=== PATIENT | male | born 1970 | race Caucasian/White ===

== ENCOUNTER 2020-10-24 03:28 | Inpatient (IN) ==
[2020-10-24] MEDS ORDERED: SODIUM CHLORIDE 0.9% 1,000 ML IV STA (04:07)
[2020-10-24] MEDS ORDERED: ONDANSETRON ODT 4 MG TABLET PO STA (04:07)
[2020-10-24 04:19] LABS: Basophils # 0.1 10*3/uL (0.0-0.2); Basophils % 0.9 % (0.0-0.8); Eosinophils # 0.2 10*3/uL (0.0-0.87); Eosinophils % 1.3 % (0.00-10.9); Hematocrit 42.2 VOL% (42.0-52.0); Hemoglobin 13.1 GM/DL (14.0-18.0); Immature Granulocytes % 23.1 %; Lymphocytes # 2.7 10*3/uL (1.4-4.0); Lymphocytes % 22.4 % (21.2-54.2); Mean Corpuscular Volume 115.3 FL (87-102); Mean Platelet Volume 11.8 FL (9.6-12.0); NRBC # 0.03 10*3/uL; Neutrophils % 46.3 % (38.7-73.9); Platelet Count 315 T/CUMM (130-400); Red Blood Count 3.66 MC/CUMM (3.8-5.5); Red Cell Distribution Width 14.6 % (9.3-17.3); White Blood Count 12.1 T/CUMM (4-12)
[2020-10-24 04:33] LABS: Albumin 3.5 G/DL (3.4-5.0); Bilirubin,Total 1.9 MG/DL (0.20-1.00); Calcium 9.1 MG/DL (8.5-10.1); Osmolality,Calculated 292.5 MOS/KG (273-304); Potassium 4.6 MMOL/L (3.5-5.1); Total Protein 6.8 G/DL (6.4-8.2)
[2020-10-24 04:38] LABS: Band Neutrophils 6 % (0-10); Eosinophils 1 % (0-10); Hypochromasia Slight; Lymphocytes 36 % (20-55); Microcytosis Slight; Platelet Estimate Adequate; Segmented Neutrophils 53 % (50-85); Total Cells Counted 100
[2020-10-24] MEDS ORDERED: ONDANSETRON 4 MG/2 ML VIAL ONE (04:38)
[2020-10-24] MEDS ORDERED: IBUPROFEN 600 MG TABLET ONE (04:38)
[2020-10-24] MEDS ORDERED: ONDANSETRON 4 MG/2 ML VIAL IV STA (04:44)
[2020-10-24] MEDS ORDERED: LEVOFLOXACIN INJ 750 MG/150 ML PREMIX IV STA (04:59)
[2020-10-24] MEDS ORDERED: methylPREDNISolone SOD SUC 125 MG/2 ML VIAL IV STA (05:02)
[2020-10-24] MEDS ORDERED: ALBUTEROL/IPRATROPIUM 3 ML NEB RESP TX STA (05:02)
[2020-10-24] MEDS ORDERED: KETOROLAC 30 MG/1 ML VIAL IV STA (05:03)
[2020-10-24] MEDS ORDERED: GLUCAGON 1 MG VIAL IM PRN (05:46)
[2020-10-24] MEDS ORDERED: DEXTROSE 50% 25 GM/50 ML VIAL IV PRN (05:46)
[2020-10-24] MEDS ORDERED: ALBUTEROL/IPRATROPIUM 3 ML NEB RESP TX PRN (05:48)
[2020-10-24] MEDS ORDERED: SODIUM CHLORIDE 0.65% NASAL SPRAY 45 ML BOTTLE BOTH NARES PRN (05:51)
[2020-10-24] MEDS ORDERED: [UNRECOGNIZED DRUG - OTHER] TOP PRN (05:51)
[2020-10-24] MEDS ORDERED: LIDOCAINE 4% TOP PRN (05:51)
[2020-10-24] MEDS ORDERED: CALCIUM CARBONATE CHEW 500 MG TABLET PO PRN (06:16)
[2020-10-24 07:06] LABS: Bacteria,Urine Many /HPF (Few); Bilirubin,Urine Negative (Negative); Blood, Urine Negative (Negative); Glucose,Urine (UA) >=500 mg/dL (Negative); Ketones,Urine 5 mg/dL (Negative); Mucus,Urine Occasional /LPF (Occasional); Nitrite,Urine Negative (Negative); Protein,Urine Negative; Urine Appearance CLEAR (Clear); Urine Color Yellow (Yellow); Urine Specific Gravity 1.016 (1.001-1.035); Urine Urobilinogen < 2.0 EU/DL (0.2-1.0)
[2020-10-24] MEDS: SODIUM CHLORIDE 0.9% 1,000 ML IV SCH ×3 (08:19→22:50)
[2020-10-24] MEDS ORDERED: DOXYCYCLINE HYCLATE INJ 100 MG in SODIUM CHLORIDE 0.9% 100 ML IV SCH (09:00)
[2020-10-24] MEDS: ONDANSETRON 4 MG/2 ML VIAL IV PRN (10:37)
[2020-10-24] MEDS: INSULIN ASPART PROTAMINE/ASPART 70/30 100 UNIT/ML SUBCUT SCH ×2 (10:39→17:35)
[2020-10-24] MEDS: BUDESONIDE/FORMOTEROL 160-4.5 INHALER 6 GM INH SCH ×2 (10:40→21:51)
[2020-10-24] MEDS: INSULIN LISPRO 100 UNIT/ML SUBCUT SCH ×5 (10:40→21:50)
[2020-10-24] MEDS: carvediloL 12.5 MG TABLET PO SCH ×2 (10:40→21:49)
[2020-10-24] MEDS: levETIRAcetam 500 MG TABLET PO SCH ×2 (10:40→21:50)
[2020-10-24] MEDS: DAPSONE 100 MG TABLET PO SCH (10:40)
[2020-10-24] MEDS: MAGNESIUM OXIDE 400 MG TABLET PO SCH ×2 (10:41→21:51)
[2020-10-24] MEDS: POTASSIUM CHLORIDE 10 MEQ TABLET PO SCH (10:41)
[2020-10-24] MEDS: ESCITALOPRAM 10 MG TABLET PO SCH (10:41)
[2020-10-24] MEDS: ALPRAZolam 0.25 MG TABLET PO SCH ×3 (10:41→21:51)
[2020-10-24] MEDS: MULTIVITAMIN (CENTRUM) TABLET PO SCH (10:41)
[2020-10-24] MEDS: ASPIRIN EC 81 MG TABLET PO SCH (10:41)
[2020-10-24] MEDS: THIAMINE 100 MG TABLET PO SCH (10:42)
[2020-10-24] MEDS: busPIRone 10 MG TABLET PO SCH ×3 (10:42→21:47)
[2020-10-24] MEDS: ASCORBIC ACID 500 MG TABLET PO SCH (10:42)
[2020-10-24] MEDS: FERROUS SULFATE 325 MG TABLET PO SCH ×2 (10:42→21:50)
[2020-10-24] MEDS: predniSONE 5 MG TABLET PO SCH (10:42)
[2020-10-24] MEDS: amLODIPine 5 MG TABLET PO SCH (10:42)
[2020-10-24] MEDS: PANTOPRAZOLE 40 MG TABLET PO SCH (10:42)
[2020-10-24] MEDS: APIXABAN 5 MG TABLET PO SCH ×2 (10:42→21:49)
[2020-10-24] MEDS: FOLIC ACID 1 MG TABLET PO SCH (10:42)
[2020-10-24] MEDS: LOSARTAN 25 MG TABLET PO SCH (10:42)
[2020-10-24] MEDS: DOCUSATE SODIUM 100 MG CAPSULE PO SCH ×2 (10:47→21:47)
[2020-10-24] MEDS: MYCOPHENOLATE MOFETIL 250 MG CAPSULE PO SCH ×2 (10:47→21:47)
[2020-10-24] MEDS: TACROLIMUS 0.5 MG CAPSULE PO SCH ×2 (10:47→21:51)
[2020-10-24] MEDS: DEXTROMETHORPHAN QUINIDINE PO SCH ×2 (11:01→17:35)
[2020-10-24] MEDS: ALBUTEROL/IPRATROPIUM 3 ML NEB RESP TX SCH ×2 (13:00→23:09)
[2020-10-24] MEDS: oxyCODONE IR 5 MG TABLET PO PRN (14:40)
[2020-10-24] MEDS: LIDOCAINE 5% PATCH TRANSDERM PRN (18:21)
[2020-10-24] MEDS: TAMSULOSIN 0.4 MG CAPSULE PO SCH (21:50)
[2020-10-24] MEDS: ATORVASTATIN 10 MG TABLET PO SCH (21:50)
[2020-10-24] MEDS: QUEtiapine 25 MG TABLET PO SCH (21:51)
[2020-10-25] MEDS: ALBUTEROL/IPRATROPIUM 3 ML NEB RESP TX SCH ×4 (01:00→19:17)
[2020-10-25 05:48] LABS: Basophils # 0.1 10*3/uL (0.0-0.2); Basophils % 0.4 % (0.0-0.8); Hematocrit 38.9 VOL% (42.0-52.0); Hemoglobin 11.7 GM/DL (14.0-18.0); Immature Granulocytes % 18.6 %; Immature Granulocytes Absolute 3.13 #; Lymphocytes % 17.6 % (21.2-54.2); Mean Corpuscular HGB Conc 30.1 GM/DL (32-36); Mean Corpuscular Volume 115.8 FL (87-102); Monocytes % 6.3 % (1.7-12.7); NRBC # 0.02 10*3/uL; Neutrophils % 57.1 % (38.7-73.9); Red Blood Count 3.36 MC/CUMM (3.8-5.5); Red Cell Distribution Width 14.8 % (9.3-17.3)
[2020-10-25 05:53] LABS: Platelet Count 233 T/CUMM (130-400); White Blood Count 16.8 T/CUMM (4-12)
[2020-10-25 06:08] LABS: Albumin 2.5 G/DL (3.4-5.0); Bilirubin,Total 0.5 MG/DL (0.20-1.00); Calcium 8.5 MG/DL (8.5-10.1); Osmolality,Calculated 296.5 MOS/KG (273-304); Potassium 5.2 MMOL/L (3.5-5.1); Total Protein 5.6 G/DL (6.4-8.2)
[2020-10-25] MEDS: DEXTROMETHORPHAN QUINIDINE PO SCH ×2 (06:14→17:48)
[2020-10-25] MEDS: LEVOTHYROXINE 100 MCG TABLET PO SCH (06:15)
[2020-10-25 06:42] LABS: Band Neutrophils 7 % (0-10); Eosinophils 1 % (0-10); Lymphocytes 19 % (20-55); Metamyelocytes 2 %; Myelocytes 2 %; Platelet Estimate Normal; Segmented Neutrophils 59 % (50-85)
[2020-10-25 06:43] LABS: Macrocytosis 1+; Total Cells Counted 100
[2020-10-25] MEDS: SODIUM CHLORIDE 0.9% 1,000 ML IV SCH ×3 (06:59→22:53)
[2020-10-25] MEDS: DOCUSATE SODIUM 100 MG CAPSULE PO SCH ×2 (09:43→21:20)
[2020-10-25] MEDS: MAGNESIUM OXIDE 400 MG TABLET PO SCH ×2 (09:44→21:16)
[2020-10-25] MEDS: ALPRAZolam 0.25 MG TABLET PO SCH ×3 (09:44→21:18)
[2020-10-25] MEDS: FERROUS SULFATE 325 MG TABLET PO SCH ×2 (09:44→21:18)
[2020-10-25] MEDS: TACROLIMUS 0.5 MG CAPSULE PO SCH ×2 (09:44→21:17)
[2020-10-25] MEDS: DAPSONE 100 MG TABLET PO SCH (09:44)
[2020-10-25] MEDS: ESCITALOPRAM 10 MG TABLET PO SCH (09:45)
[2020-10-25] MEDS: ASPIRIN EC 81 MG TABLET PO SCH (09:45)
[2020-10-25] MEDS: MYCOPHENOLATE MOFETIL 250 MG CAPSULE PO SCH ×2 (09:45→21:16)
[2020-10-25] MEDS: busPIRone 10 MG TABLET PO SCH ×3 (09:45→21:17)
[2020-10-25] MEDS: THIAMINE 100 MG TABLET PO SCH (09:45)
[2020-10-25] MEDS: FOLIC ACID 1 MG TABLET PO SCH (09:45)
[2020-10-25] MEDS: MULTIVITAMIN (CENTRUM) TABLET PO SCH (09:45)
[2020-10-25] MEDS: ASCORBIC ACID 500 MG TABLET PO SCH (09:45)
[2020-10-25] MEDS: predniSONE 5 MG TABLET PO SCH (09:45)
[2020-10-25] MEDS: levETIRAcetam 500 MG TABLET PO SCH ×2 (09:45→21:20)
[2020-10-25] MEDS: APIXABAN 5 MG TABLET PO SCH ×2 (09:46→21:20)
[2020-10-25] MEDS: carvediloL 12.5 MG TABLET PO SCH ×2 (09:46→21:21)
[2020-10-25] MEDS: PANTOPRAZOLE 40 MG TABLET PO SCH (09:46)
[2020-10-25] MEDS: INSULIN LISPRO 100 UNIT/ML SUBCUT SCH ×4 (09:46→21:15)
[2020-10-25] MEDS: BUDESONIDE/FORMOTEROL 160-4.5 INHALER 6 GM INH SCH ×2 (09:47→21:22)
[2020-10-25] MEDS: INSULIN ASPART PROTAMINE/ASPART 70/30 100 UNIT/ML SUBCUT SCH ×2 (09:47→16:28)
[2020-10-25] MEDS: LOSARTAN 25 MG TABLET PO SCH (10:18)
[2020-10-25] MEDS: amLODIPine 5 MG TABLET PO SCH (10:18)
[2020-10-25] MEDS: POTASSIUM CHLORIDE 10 MEQ TABLET PO SCH (10:38)
[2020-10-25] MEDS: TAMSULOSIN 0.4 MG CAPSULE PO SCH (21:17)
[2020-10-25] MEDS: QUEtiapine 25 MG TABLET PO SCH (21:19)
[2020-10-25] MEDS: ATORVASTATIN 10 MG TABLET PO SCH (21:20)
[2020-10-26] MEDS: ALBUTEROL/IPRATROPIUM 3 ML NEB RESP TX SCH ×4 (00:06→19:12)
[2020-10-26] MEDS: oxyCODONE IR 5 MG TABLET PO PRN ×2 (02:47→23:31)
[2020-10-26 05:18] LABS: Basophils % 0.3 % (0.0-0.8); Eosinophils % 0.2 % (0.00-10.9); Hematocrit 35.8 VOL% (42.0-52.0); Hemoglobin 10.8 GM/DL (14.0-18.0); Immature Granulocytes % 13.3 %; Immature Granulocytes Absolute 2.03 #; Lymphocytes # 3.3 10*3/uL (1.4-4.0); Lymphocytes % 21.9 % (21.2-54.2); Mean Corpuscular HGB Conc 30.2 GM/DL (32-36); Mean Corpuscular Volume 115.1 FL (87-102); Mean Platelet Volume 12.1 FL (9.6-12.0); Monocytes % 4.3 % (1.7-12.7); NRBC # 0.08 10*3/uL; Platelet Count 278 T/CUMM (130-400); Red Blood Count 3.11 MC/CUMM (3.8-5.5); Red Cell Distribution Width 14.7 % (9.3-17.3); White Blood Count 15.2 T/CUMM (4-12)
[2020-10-26] MEDS: DEXTROMETHORPHAN QUINIDINE PO SCH ×2 (05:31→18:41)
[2020-10-26] MEDS: LEVOTHYROXINE 100 MCG TABLET PO SCH (05:32)
[2020-10-26 05:33] LABS: Calcium 8.7 MG/DL (8.5-10.1); Osmolality,Calculated 294.3 MOS/KG (273-304); Potassium 4.8 MMOL/L (3.5-5.1)
[2020-10-26 07:13] LABS: Anisocytosis 2+; Atypical Lymphocytes Few; Band Neutrophils 23 % (0-10); Burr Cells Few; Lymphocytes 23 % (20-55); Macrocytosis 2+; Metamyelocytes 6 %; Myelocytes 1 %; Platelet Estimate Normal; Segmented Neutrophils 44 % (50-85); Smudge Cells Few; Total Cells Counted 100
[2020-10-26] MEDS: SODIUM CHLORIDE 0.9% 1,000 ML IV SCH ×3 (07:25→23:39)
[2020-10-26] MEDS: BUDESONIDE/FORMOTEROL 160-4.5 INHALER 6 GM INH SCH ×2 (09:18→20:48)
[2020-10-26] MEDS: INSULIN LISPRO 100 UNIT/ML SUBCUT SCH ×4 (09:18→20:42)
[2020-10-26] MEDS: ONDANSETRON 4 MG/2 ML VIAL IV PRN ×2 (09:18→23:31)
[2020-10-26] MEDS: INSULIN ASPART PROTAMINE/ASPART 70/30 100 UNIT/ML SUBCUT SCH ×2 (09:19→17:38)
[2020-10-26] MEDS: ASPIRIN EC 81 MG TABLET PO SCH (09:19)
[2020-10-26] MEDS: busPIRone 10 MG TABLET PO SCH ×3 (09:20→20:44)
[2020-10-26] MEDS: TACROLIMUS 0.5 MG CAPSULE PO SCH ×2 (09:20→20:43)
[2020-10-26] MEDS: MYCOPHENOLATE MOFETIL 250 MG CAPSULE PO SCH ×2 (09:20→20:44)
[2020-10-26] MEDS: MAGNESIUM OXIDE 400 MG TABLET PO SCH ×2 (09:21→20:43)
[2020-10-26] MEDS: THIAMINE 100 MG TABLET PO SCH (09:21)
[2020-10-26] MEDS: ALPRAZolam 0.25 MG TABLET PO SCH ×3 (09:21→20:44)
[2020-10-26] MEDS: levETIRAcetam 500 MG TABLET PO SCH ×2 (09:21→20:45)
[2020-10-26] MEDS: carvediloL 6.25 MG TABLET PO SCH ×2 (09:21→17:39)
[2020-10-26] MEDS: DOCUSATE SODIUM 100 MG CAPSULE PO SCH ×2 (09:21→20:44)
[2020-10-26] MEDS: predniSONE 5 MG TABLET PO SCH (09:21)
[2020-10-26] MEDS: ASCORBIC ACID 500 MG TABLET PO SCH (09:21)
[2020-10-26] MEDS: PANTOPRAZOLE 40 MG TABLET PO SCH (09:21)
[2020-10-26] MEDS: MULTIVITAMIN (CENTRUM) TABLET PO SCH (09:21)
[2020-10-26] MEDS: FERROUS SULFATE 325 MG TABLET PO SCH ×2 (09:21→20:45)
[2020-10-26] MEDS: ESCITALOPRAM 10 MG TABLET PO SCH (09:22)
[2020-10-26] MEDS: DAPSONE 100 MG TABLET PO SCH (09:22)
[2020-10-26] MEDS: APIXABAN 5 MG TABLET PO SCH ×2 (09:22→20:44)
[2020-10-26] MEDS: FOLIC ACID 1 MG TABLET PO SCH (09:22)
[2020-10-26] MEDS: QUEtiapine 25 MG TABLET PO SCH (20:44)
[2020-10-26] MEDS: TAMSULOSIN 0.4 MG CAPSULE PO SCH (20:46)
[2020-10-26] MEDS: ATORVASTATIN 10 MG TABLET PO SCH (20:46)
[2020-10-26] MEDS: MELATONIN 3 MG TABLET PO PRN (23:32)
[2020-10-27] MEDS: ALBUTEROL/IPRATROPIUM 3 ML NEB RESP TX SCH ×4 (00:28→20:14)
[2020-10-27] MEDS ORDERED: PROMETHAZINE 25 MG/1 ML VIAL IM PRN (00:50)
[2020-10-27 05:02] LABS: Basophils # 0.1 10*3/uL (0.0-0.2); Basophils % 0.6 % (0.0-0.8); Eosinophils # 0.2 10*3/uL (0.0-0.87); Hematocrit 40.6 VOL% (42.0-52.0); Hemoglobin 12.3 GM/DL (14.0-18.0); Immature Granulocytes % 7.4 %; Immature Granulocytes Absolute 0.67 #; Lymphocytes # 1.4 10*3/uL (1.4-4.0); Lymphocytes % 15.5 % (21.2-54.2); Mean Corpuscular HGB Conc 30.3 GM/DL (32-36); Mean Corpuscular Volume 114.7 FL (87-102); NRBC # 0.12 10*3/uL; Neutrophils % 69.5 % (38.7-73.9); Platelet Count 275 T/CUMM (130-400); Red Blood Count 3.54 MC/CUMM (3.8-5.5); Red Cell Distribution Width 14.6 % (9.3-17.3); White Blood Count 9.1 T/CUMM (4-12)
[2020-10-27 05:31] LABS: Calcium 8.4 MG/DL (8.5-10.1); Osmolality,Calculated 281.4 MOS/KG (273-304); Potassium 4.2 MMOL/L (3.5-5.1)
[2020-10-27 05:32] LABS: Band Neutrophils 5 % (0-10); Eosinophils 3 % (0-10); Hypochromasia 1+; Lymphocytes 8 % (20-55); Macrocytosis 1+; Metamyelocytes 2 %; Nucleated Red Blood Cells 1 (0-5); Segmented Neutrophils 71 % (50-85); Total Cells Counted 100
[2020-10-27 05:33] LABS: Platelet Estimate Normal
[2020-10-27] MEDS: LEVOTHYROXINE 100 MCG TABLET PO SCH (05:34)
[2020-10-27] MEDS: DEXTROMETHORPHAN QUINIDINE PO SCH ×2 (06:22→18:03)
[2020-10-27] MEDS: SODIUM CHLORIDE 0.9% 1,000 ML IV SCH (07:41)
[2020-10-27] MEDS: INSULIN LISPRO 100 UNIT/ML SUBCUT SCH ×3 (08:14→16:08)
[2020-10-27] MEDS: THIAMINE 100 MG TABLET PO SCH (09:02)
[2020-10-27] MEDS: DOCUSATE SODIUM 100 MG CAPSULE PO SCH (09:02)
[2020-10-27] MEDS: INSULIN ASPART PROTAMINE/ASPART 70/30 100 UNIT/ML SUBCUT SCH ×2 (09:02→17:14)
[2020-10-27] MEDS: ALPRAZolam 0.25 MG TABLET PO SCH ×2 (09:03→17:06)
[2020-10-27] MEDS: TACROLIMUS 0.5 MG CAPSULE PO SCH ×2 (09:03→23:56)
[2020-10-27] MEDS: ASPIRIN EC 81 MG TABLET PO SCH (09:03)
[2020-10-27] MEDS: MAGNESIUM OXIDE 400 MG TABLET PO SCH ×2 (09:03→23:57)
[2020-10-27] MEDS: FERROUS SULFATE 325 MG TABLET PO SCH (09:03)
[2020-10-27] MEDS: ASCORBIC ACID 500 MG TABLET PO SCH (09:03)
[2020-10-27] MEDS: MYCOPHENOLATE MOFETIL 250 MG CAPSULE PO SCH ×2 (09:03→23:58)
[2020-10-27] MEDS: busPIRone 10 MG TABLET PO SCH ×2 (09:04→17:16)
[2020-10-27] MEDS: predniSONE 5 MG TABLET PO SCH (09:04)
[2020-10-27] MEDS: MULTIVITAMIN (CENTRUM) TABLET PO SCH (09:04)
[2020-10-27] MEDS: levETIRAcetam 500 MG TABLET PO SCH ×2 (09:04→23:59)
[2020-10-27] MEDS: FOLIC ACID 1 MG TABLET PO SCH (09:04)
[2020-10-27] MEDS: ESCITALOPRAM 10 MG TABLET PO SCH (09:04)
[2020-10-27] MEDS: carvediloL 6.25 MG TABLET PO SCH ×2 (09:04→17:16)
[2020-10-27] MEDS: PANTOPRAZOLE 40 MG TABLET PO SCH (09:04)
[2020-10-27] MEDS: APIXABAN 5 MG TABLET PO SCH ×2 (09:04→23:59)
[2020-10-27] MEDS: DAPSONE 100 MG TABLET PO SCH (09:08)
[2020-10-27] MEDS: PIPERACILLIN/TAZOBACTAM 3,375 MG in SODIUM CHLORIDE 0.9% 100 ML IV SCH ×2 (09:26→17:24)
[2020-10-27 10:36] LABS: ABG Base Excess 2.6 MMOL/L (-2.5-2.5); ABG HCO3 26.7 MMOL/L (20-26); ABG Oxygen Saturation 96.8 % (95-100); ABG PCO2 47.4 MM HG (35-48); ABG PH 7.383 (7.35-7.45); ABG PO2 98.8 MM HG (80-95); ABG TCO2 25.4 MMOL/L (23-27)
[2020-10-27] MEDS: BUDESONIDE/FORMOTEROL 160-4.5 INHALER 6 GM INH SCH (14:37)
[2020-10-28] MEDS: ALPRAZolam 0.25 MG TABLET PO SCH ×4 (00:05→23:53)
[2020-10-28] MEDS: FERROUS SULFATE 325 MG TABLET PO SCH ×3 (00:06→23:52)
[2020-10-28] MEDS: TAMSULOSIN 0.4 MG CAPSULE PO SCH ×2 (00:06→23:53)
[2020-10-28] MEDS: busPIRone 10 MG TABLET PO SCH ×4 (00:08→23:54)
[2020-10-28] MEDS: ATORVASTATIN 10 MG TABLET PO SCH ×2 (00:08→23:54)
[2020-10-28] MEDS: DOCUSATE SODIUM 100 MG CAPSULE PO SCH ×3 (00:08→23:52)
[2020-10-28] MEDS: QUEtiapine 25 MG TABLET PO SCH ×2 (00:08→23:54)
[2020-10-28] MEDS: INSULIN LISPRO 100 UNIT/ML SUBCUT SCH ×4 (00:09→16:44)
[2020-10-28] MEDS: BUDESONIDE/FORMOTEROL 160-4.5 INHALER 6 GM INH SCH ×2 (00:10→10:36)
[2020-10-28] MEDS: SODIUM CHLORIDE 0.9% 1,000 ML IV SCH ×2 (00:18→11:44)
[2020-10-28] MEDS: PIPERACILLIN/TAZOBACTAM 3,375 MG in SODIUM CHLORIDE 0.9% 100 ML IV SCH ×3 (00:21→16:45)
[2020-10-28] MEDS: ALBUTEROL/IPRATROPIUM 3 ML NEB RESP TX SCH ×4 (01:52→20:35)
[2020-10-28 05:01] LABS: Basophils # 0.1 10*3/uL (0.0-0.2); Basophils % 0.7 % (0.0-0.8); Eosinophils # 0.2 10*3/uL (0.0-0.87); Eosinophils % 1.9 % (0.00-10.9); Hematocrit 34.9 VOL% (42.0-52.0); Hemoglobin 10.6 GM/DL (14.0-18.0); Immature Granulocytes % 7.2 %; Immature Granulocytes Absolute 0.76 #; Lymphocytes # 3.3 10*3/uL (1.4-4.0); Lymphocytes % 31.6 % (21.2-54.2); Mean Corpuscular HGB Conc 30.4 GM/DL (32-36); Mean Corpuscular Volume 112.9 FL (87-102); Monocytes % 6.3 % (1.7-12.7); NRBC # 0.04 10*3/uL; Neutrophils % 52.3 % (38.7-73.9); Platelet Count 234 T/CUMM (130-400); Red Blood Count 3.09 MC/CUMM (3.8-5.5); Red Cell Distribution Width 14.8 % (9.3-17.3); White Blood Count 10.5 T/CUMM (4-12)
[2020-10-28 05:24] LABS: Calcium 8.1 MG/DL (8.5-10.1); Osmolality,Calculated 281.5 MOS/KG (273-304); Potassium 3.9 MMOL/L (3.5-5.1)
[2020-10-28 05:29] LABS: Band Neutrophils 2 % (0-10); Eosinophils 2 % (0-10); Lymphocytes 31 % (20-55); Platelet Estimate Adequate; Segmented Neutrophils 58 % (50-85); Total Cells Counted 100
[2020-10-28 05:30] LABS: Hypochromasia 1+; Microcytosis 1+
[2020-10-28 05:50] LABS: Folate 20.9 NG/ML (5.38-24.0)
[2020-10-28] MEDS: DEXTROMETHORPHAN QUINIDINE PO SCH ×2 (06:19→17:01)
[2020-10-28] MEDS: LEVOTHYROXINE 100 MCG TABLET PO SCH (06:44)
[2020-10-28] MEDS ORDERED: MAGNESIUM SULF RIDER 2 GM/50 ML PREMIX IV ONE (07:33)
[2020-10-28] MEDS: INSULIN ASPART PROTAMINE/ASPART 70/30 100 UNIT/ML SUBCUT SCH ×2 (08:52→16:44)
[2020-10-28] MEDS: MULTIVITAMIN (CENTRUM) TABLET PO SCH (08:53)
[2020-10-28] MEDS: MAGNESIUM OXIDE 400 MG TABLET PO SCH ×2 (08:53→23:53)
[2020-10-28] MEDS: ASPIRIN EC 81 MG TABLET PO SCH (08:54)
[2020-10-28] MEDS: levETIRAcetam 500 MG TABLET PO SCH ×2 (08:54→23:54)
[2020-10-28] MEDS: oxyCODONE IR 5 MG TABLET PO PRN ×2 (08:54→17:51)
[2020-10-28] MEDS: TACROLIMUS 0.5 MG CAPSULE PO SCH ×2 (08:54→23:51)
[2020-10-28] MEDS: APIXABAN 5 MG TABLET PO SCH ×2 (08:54→23:53)
[2020-10-28] MEDS: MYCOPHENOLATE MOFETIL 250 MG CAPSULE PO SCH ×2 (08:55→23:52)
[2020-10-28] MEDS: predniSONE 5 MG TABLET PO SCH (08:55)
[2020-10-28] MEDS: THIAMINE 100 MG TABLET PO SCH (08:55)
[2020-10-28] MEDS: carvediloL 6.25 MG TABLET PO SCH ×2 (08:55→16:45)
[2020-10-28] MEDS: FOLIC ACID 1 MG TABLET PO SCH (08:55)
[2020-10-28] MEDS: ESCITALOPRAM 10 MG TABLET PO SCH (08:55)
[2020-10-28] MEDS: ASCORBIC ACID 500 MG TABLET PO SCH (08:55)
[2020-10-28] MEDS: PANTOPRAZOLE 40 MG TABLET PO SCH (08:55)
[2020-10-28] MEDS: DAPSONE 100 MG TABLET PO SCH (08:55)
[2020-10-28] MEDS: LIDOCAINE 5% PATCH TRANSDERM PRN (17:59)
[2020-10-28] MEDS ORDERED: HYDROmorphone 2 MG/1 ML VIAL IV ONE (23:26)
[2020-10-28] MEDS: MELATONIN 3 MG TABLET PO PRN (23:51)
[2020-10-29] MEDS: INSULIN LISPRO 100 UNIT/ML SUBCUT SCH ×3 (00:26→12:30)
[2020-10-29] MEDS: BUDESONIDE/FORMOTEROL 160-4.5 INHALER 6 GM INH SCH ×2 (00:26→08:47)
[2020-10-29] MEDS: PIPERACILLIN/TAZOBACTAM 3,375 MG in SODIUM CHLORIDE 0.9% 100 ML IV SCH (00:33)
[2020-10-29] MEDS: ALBUTEROL/IPRATROPIUM 3 ML NEB RESP TX SCH ×2 (02:05→07:20)
[2020-10-29 05:18] LABS: Basophils # 0.1 10*3/uL (0.0-0.2); Basophils % 0.6 % (0.0-0.8); Eosinophils # 0.2 10*3/uL (0.0-0.87); Eosinophils % 2.9 % (0.00-10.9); Hematocrit 34.1 VOL% (42.0-52.0); Hemoglobin 10.6 GM/DL (14.0-18.0); Immature Granulocytes Absolute 0.47 #; Lymphocytes # 3.2 10*3/uL (1.4-4.0); Lymphocytes % 40.5 % (21.2-54.2); Mean Corpuscular HGB Conc 31.1 GM/DL (32-36); Mean Corpuscular Volume 111.8 FL (87-102); Mean Platelet Volume 12.4 FL (9.6-12.0); Monocytes % 11.5 % (1.7-12.7); NRBC # 0.04 10*3/uL; Neutrophils % 38.5 % (38.7-73.9); Platelet Count 228 T/CUMM (130-400); Red Blood Count 3.05 MC/CUMM (3.8-5.5); Red Cell Distribution Width 14.6 % (9.3-17.3); White Blood Count 7.8 T/CUMM (4-12)
[2020-10-29 05:41] LABS: Eosinophils 2 % (0-10); Hypochromasia 1+; Lymphocytes 47 % (20-55); Microcytosis 1+; Platelet Estimate Adequate; Segmented Neutrophils 40 % (50-85); Total Cells Counted 100
[2020-10-29 05:42] LABS: Atypical Lymphocytes Few
[2020-10-29 05:54] LABS: Calcium 8.2 MG/DL (8.5-10.1); Osmolality,Calculated 280.4 MOS/KG (273-304); Potassium 3.7 MMOL/L (3.5-5.1)
[2020-10-29] MEDS: DEXTROMETHORPHAN QUINIDINE PO SCH (07:30)
[2020-10-29] MEDS: LEVOTHYROXINE 100 MCG TABLET PO SCH (07:32)
[2020-10-29] MEDS: DOCUSATE SODIUM 100 MG CAPSULE PO SCH (08:44)
[2020-10-29] MEDS: ALPRAZolam 0.25 MG TABLET PO SCH ×2 (08:44→14:23)
[2020-10-29] MEDS: INSULIN ASPART PROTAMINE/ASPART 70/30 100 UNIT/ML SUBCUT SCH (08:44)
[2020-10-29] MEDS: THIAMINE 100 MG TABLET PO SCH (08:45)
[2020-10-29] MEDS: FERROUS SULFATE 325 MG TABLET PO SCH (08:45)
[2020-10-29] MEDS: MULTIVITAMIN (CENTRUM) TABLET PO SCH (08:45)
[2020-10-29] MEDS: levETIRAcetam 500 MG TABLET PO SCH (08:45)
[2020-10-29] MEDS: ASPIRIN EC 81 MG TABLET PO SCH (08:45)
[2020-10-29] MEDS: MAGNESIUM OXIDE 400 MG TABLET PO SCH (08:45)
[2020-10-29] MEDS: busPIRone 10 MG TABLET PO SCH ×2 (08:45→14:23)
[2020-10-29] MEDS: APIXABAN 5 MG TABLET PO SCH (08:45)
[2020-10-29] MEDS: carvediloL 6.25 MG TABLET PO SCH (08:46)
[2020-10-29] MEDS: TACROLIMUS 0.5 MG CAPSULE PO SCH (08:46)
[2020-10-29] MEDS: FOLIC ACID 1 MG TABLET PO SCH (08:46)
[2020-10-29] MEDS: ESCITALOPRAM 10 MG TABLET PO SCH (08:46)
[2020-10-29] MEDS: PANTOPRAZOLE 40 MG TABLET PO SCH (08:46)
[2020-10-29] MEDS: ASCORBIC ACID 500 MG TABLET PO SCH (08:46)
[2020-10-29] MEDS: predniSONE 5 MG TABLET PO SCH (08:46)
[2020-10-29] MEDS: MYCOPHENOLATE MOFETIL 250 MG CAPSULE PO SCH (08:47)
[2020-10-29] MEDS: DAPSONE 100 MG TABLET PO SCH (08:47)
[2020-10-29] MEDS: ERTAPENEM 1,000 MG in SODIUM CHLORIDE 0.9% 100 ML IV SCH ×2 (11:07→13:19)
[2020-10-29] MEDS: oxyCODONE IR 5 MG TABLET PO PRN (14:24)
[2020-10-29 15:35] VITALS: BP 142/65
== END 2020-10-29 16:25 | DRG 871 ==
LOC: EDUNIT# → EDBD → N.ED 03:28 → N.EDINP 03:28 → N.5E 07:41 → SUATTDRO 13:29
PROVIDERS: ADMIT Internal Medicine; ATTEND Internal Medicine

== ENCOUNTER 2020-11-22 13:24 | Inpatient (IN) ==
[2020-11-22 15:42] LABS: Basophils # 0.1 10*3/uL (0.0-0.2); Basophils % 1.2 % (0.0-0.8); Eosinophils # 0.1 10*3/uL (0.0-0.87); Eosinophils % 0.8 % (0.00-10.9); Hematocrit 39.1 VOL% (42.0-52.0); Hemoglobin 11.8 GM/DL (14.0-18.0); Immature Granulocytes Absolute 0.44 #; Lymphocytes # 2.6 10*3/uL (1.4-4.0); Lymphocytes % 34.9 % (21.2-54.2); Mean Corpuscular HGB Conc 30.2 GM/DL (32-36); Mean Corpuscular Volume 111.1 FL (87-102); Mean Platelet Volume 11.6 FL (9.6-12.0); Monocytes % 5.2 % (1.7-12.7); NRBC # 0.03 10*3/uL; Neutrophils % 51.9 % (38.7-73.9); Platelet Count 261 T/CUMM (130-400); Red Blood Count 3.52 MC/CUMM (3.8-5.5); Red Cell Distribution Width 15.2 % (9.3-17.3); White Blood Count 7.4 T/CUMM (4-12)
[2020-11-22 15:59] LABS: Albumin 3.1 G/DL (3.4-5.0); Bilirubin,Total 0.6 MG/DL (0.20-1.00); Calcium 8.8 MG/DL (8.5-10.1); Osmolality,Calculated 282.7 MOS/KG (273-304); Potassium 4.9 MMOL/L (3.5-5.1); Total Protein 6.5 G/DL (6.4-8.2)
[2020-11-22 16:03] LABS: Ferritin 1372.7 ng/mL (26-388)
[2020-11-22 16:08] LABS: INR 1.1; PT Patient Result 12.1 SECS (10.5-12.0)
[2020-11-22] MEDS ORDERED: cefTRIAXone 2,000 MG in SODIUM CHLORIDE 0.9% 100 ML IV ONE (16:59)
[2020-11-22] MEDS ORDERED: cefTRIAXone 1,000 MG VIAL ONE (17:47)
[2020-11-22] MEDS ORDERED: DEXTROSE 50% 25 GM/50 ML VIAL IV PRN ×2 (18:20)
[2020-11-22] MEDS ORDERED: GLUCAGON 1 MG VIAL IM PRN ×2 (18:20)
[2020-11-22] MEDS ORDERED: ENOXAPARIN 40 MG/0.4 ML SYRINGE SUBCUT SCH (18:30)
[2020-11-22] MEDS: FAMOTIDINE 20 MG TABLET PO SCH (22:34)
[2020-11-22] MEDS: SODIUM CHLORIDE 0.9% 1,000 ML IV SCH (22:34)
[2020-11-22] MEDS: APIXABAN 5 MG TABLET PO SCH (22:35)
[2020-11-22] MEDS: ATORVASTATIN 10 MG TABLET PO SCH (22:35)
[2020-11-22] MEDS: ALPRAZolam 0.5 MG TABLET PO SCH (22:36)
[2020-11-22] MEDS: ACETAMINOPHEN 325 MG TABLET PO PRN (22:36)
[2020-11-23 05:44] LABS: Basophils # 0.1 10*3/uL (0.0-0.2); Basophils % 0.8 % (0.0-0.8); Eosinophils % 0.6 % (0.00-10.9); Hematocrit 38.8 VOL% (42.0-52.0); Hemoglobin 12.1 GM/DL (14.0-18.0); Immature Granulocytes % 6.3 %; Immature Granulocytes Absolute 0.45 #; Lymphocytes # 3.6 10*3/uL (1.4-4.0); Lymphocytes % 49.9 % (21.2-54.2); Mean Corpuscular HGB Conc 31.2 GM/DL (32-36); Mean Corpuscular Volume 113.8 FL (87-102); Mean Platelet Volume 12.3 FL (9.6-12.0); Monocytes % 4.2 % (1.7-12.7); NRBC # 0.04 10*3/uL; Neutrophils % 38.2 % (38.7-73.9); Platelet Count 240 T/CUMM (130-400); Red Blood Count 3.41 MC/CUMM (3.8-5.5); Red Cell Distribution Width 15.1 % (9.3-17.3); White Blood Count 7.2 T/CUMM (4-12)
[2020-11-23 06:09] LABS: Albumin 2.7 G/DL (3.4-5.0); Bilirubin,Total 0.7 MG/DL (0.20-1.00); Calcium 8.9 MG/DL (8.5-10.1); Osmolality,Calculated 282.7 MOS/KG (273-304); Potassium 4.6 MMOL/L (3.5-5.1); Total Protein 6.5 G/DL (6.4-8.2)
[2020-11-23 06:35] LABS: Ferritin 1298.4 ng/mL (26-388)
[2020-11-23 06:38] LABS: Anisocytosis 1+; Band Neutrophils 18 % (0-10); Burr Cells Few; Eosinophils 1 % (0-10); Lymphocytes 46 % (20-55); Macrocytosis 1+; Metamyelocytes 1 %; Nucleated Red Blood Cells 1 (0-5); Platelet Estimate Normal; Segmented Neutrophils 31 % (50-85); Smudge Cells 1+; Total Cells Counted 100
[2020-11-23 06:39] LABS: Atypical Lymphocytes Few
[2020-11-23] MEDS ORDERED: DEXAMETHASONE 0.5 MG TABLET PO SCH (09:00)
[2020-11-23] MEDS: ALPRAZolam 0.5 MG TABLET PO SCH ×3 (09:14→20:33)
[2020-11-23] MEDS: FAMOTIDINE 20 MG TABLET PO SCH ×2 (09:14→20:33)
[2020-11-23] MEDS: AZITHROMYCIN 250 MG TABLET PO SCH (09:14)
[2020-11-23] MEDS: APIXABAN 5 MG TABLET PO SCH ×2 (09:14→20:33)
[2020-11-23] MEDS: amLODIPine 5 MG TABLET PO SCH (09:15)
[2020-11-23] MEDS: ZINC SULFATE 220 MG CAPSULE PO SCH (09:15)
[2020-11-23] MEDS: ASPIRIN EC 81 MG TABLET PO SCH (09:15)
[2020-11-23] MEDS: DEXAMETHASONE 4 MG TABLET PO SCH (09:15)
[2020-11-23] MEDS: oxyCODONE IR 5 MG TABLET PO PRN (14:18)
[2020-11-23] MEDS: SODIUM CHLORIDE 0.9% 1,000 ML IV SCH (16:28)
[2020-11-23] MEDS: INSULIN LISPRO 100 UNIT/ML SUBCUT SCH ×2 (16:28→20:34)
[2020-11-23] MEDS: cefTRIAXone 2,000 MG in SODIUM CHLORIDE 0.9% 100 ML IV SCH (18:17)
[2020-11-23] MEDS: TACROLIMUS 0.5 MG CAPSULE PO SCH (20:33)
[2020-11-23] MEDS: MYCOPHENOLATE MOFETIL 250 MG CAPSULE PO SCH (20:33)
[2020-11-23] MEDS: ATORVASTATIN 10 MG TABLET PO SCH (20:34)
[2020-11-23] MEDS: QUEtiapine 25 MG TABLET PO SCH (20:34)
[2020-11-24] MEDS: LEVOTHYROXINE 100 MCG TABLET PO SCH (06:04)
[2020-11-24 06:46] LABS: Albumin 2.8 G/DL (3.4-5.0); Bilirubin,Total 0.9 MG/DL (0.20-1.00); Calcium 8.6 MG/DL (8.5-10.1); Osmolality,Calculated 275.4 MOS/KG (273-304); Potassium 5.2 MMOL/L (3.5-5.1); Total Protein 7.4 G/DL (6.4-8.2)
[2020-11-24 06:56] LABS: Basophils # 0.1 10*3/uL (0.0-0.2); Basophils % 1.2 % (0.0-0.8); Hematocrit 44.6 VOL% (42.0-52.0); Hemoglobin 13.6 GM/DL (14.0-18.0); Immature Granulocytes % 4.1 %; Immature Granulocytes Absolute 0.21 #; Lymphocytes # 1.7 10*3/uL (1.4-4.0); Lymphocytes % 33.1 % (21.2-54.2); Mean Corpuscular HGB Conc 30.5 GM/DL (32-36); Mean Corpuscular Volume 116.4 FL (87-102); Mean Platelet Volume 12.2 FL (9.6-12.0); NRBC # 0.06 10*3/uL; Neutrophils % 59.6 % (38.7-73.9); Platelet Count 222 T/CUMM (130-400); Red Blood Count 3.83 MC/CUMM (3.8-5.5); White Blood Count 5.1 T/CUMM (4-12)
[2020-11-24 07:02] LABS: Ferritin 1405.8 ng/mL (26-388)
[2020-11-24 07:23] LABS: Band Neutrophils 2 % (0-10); Lymphocytes 30 % (20-55); Platelet Estimate Adequate; Segmented Neutrophils 67 % (50-85); Total Cells Counted 100
[2020-11-24] MEDS: oxyCODONE IR 5 MG TABLET PO PRN (08:00)
[2020-11-24] MEDS: INSULIN LISPRO 100 UNIT/ML SUBCUT SCH ×4 (08:16→20:39)
[2020-11-24] MEDS: FAMOTIDINE 20 MG TABLET PO SCH ×2 (08:18→20:36)
[2020-11-24] MEDS: amLODIPine 5 MG TABLET PO SCH (08:18)
[2020-11-24] MEDS: TACROLIMUS 0.5 MG CAPSULE PO SCH ×2 (08:18→20:36)
[2020-11-24] MEDS: ZINC SULFATE 220 MG CAPSULE PO SCH (08:18)
[2020-11-24] MEDS: ESCITALOPRAM 10 MG TABLET PO SCH (08:18)
[2020-11-24] MEDS: AZITHROMYCIN 250 MG TABLET PO SCH (08:20)
[2020-11-24] MEDS: APIXABAN 5 MG TABLET PO SCH ×2 (08:21→20:36)
[2020-11-24] MEDS: MYCOPHENOLATE MOFETIL 250 MG CAPSULE PO SCH ×2 (08:21→20:39)
[2020-11-24] MEDS: ASPIRIN EC 81 MG TABLET PO SCH (08:21)
[2020-11-24] MEDS: DEXAMETHASONE 4 MG TABLET PO SCH (08:21)
[2020-11-24] MEDS: ALPRAZolam 0.5 MG TABLET PO SCH ×3 (08:22→20:36)
[2020-11-24 09:08] LABS: Free T4 (Free Thyroxine) 1.2 NG/DL (0.76-1.46)
[2020-11-24] MEDS: DESITIN 4OZ/NYSTATIN 15 GRAM MIXTURE PASTE TOP SCH ×2 (09:44→20:39)
[2020-11-24] MEDS: SODIUM CHLORIDE 0.9% 1,000 ML IV SCH (10:53)
[2020-11-24] MEDS ORDERED: REMDESIVIR 200 MG in SODIUM CHLORIDE 0.9% 210 ML IV ONE (11:00)
[2020-11-24] MEDS: cefTRIAXone 2,000 MG in SODIUM CHLORIDE 0.9% 100 ML IV SCH (17:58)
[2020-11-24] MEDS: ATORVASTATIN 10 MG TABLET PO SCH (20:36)
[2020-11-24] MEDS: QUEtiapine 25 MG TABLET PO SCH (20:36)
[2020-11-25] MEDS: LEVOTHYROXINE 100 MCG TABLET PO SCH (06:30)
[2020-11-25] MEDS: SODIUM CHLORIDE 0.9% 1,000 ML IV SCH (06:53)
[2020-11-25 07:10] LABS: Basophils % 0.4 % (0.0-0.8); Hematocrit 39.8 VOL% (42.0-52.0); Immature Granulocytes % 7.3 %; Immature Granulocytes Absolute 0.49 #; Lymphocytes % 30.1 % (21.2-54.2); Mean Corpuscular HGB Conc 30.2 GM/DL (32-36); Mean Corpuscular Volume 112.1 FL (87-102); Mean Platelet Volume 12.4 FL (9.6-12.0); NRBC # 0.02 10*3/uL; Neutrophils % 58.2 % (38.7-73.9); Platelet Count 279 T/CUMM (130-400); Red Blood Count 3.55 MC/CUMM (3.8-5.5); Red Cell Distribution Width 14.6 % (9.3-17.3); White Blood Count 6.7 T/CUMM (4-12)
[2020-11-25 07:47] LABS: Band Neutrophils 6 % (0-10); Hypochromasia 1+; Lymphocytes 30 % (20-55); Segmented Neutrophils 56 % (50-85); Total Cells Counted 100
[2020-11-25] MEDS: INSULIN LISPRO 100 UNIT/ML SUBCUT SCH ×4 (07:47→20:07)
[2020-11-25 07:48] LABS: Macrocytosis 1+
[2020-11-25 07:49] LABS: Albumin 2.8 G/DL (3.4-5.0); Bilirubin,Total 0.4 MG/DL (0.20-1.00); Burr Cells Slight; Calcium 8.7 MG/DL (8.5-10.1); Platelet Estimate Normal; Potassium 4.4 MMOL/L (3.5-5.1); Total Protein 6.8 G/DL (6.4-8.2)
[2020-11-25 07:58] LABS: Ferritin 978.7 ng/mL (26-388)
[2020-11-25] MEDS: DESITIN 4OZ/NYSTATIN 15 GRAM MIXTURE PASTE TOP SCH ×2 (08:15→20:09)
[2020-11-25] MEDS: DEXAMETHASONE 4 MG TABLET PO SCH (08:15)
[2020-11-25] MEDS: REMDESIVIR 100 MG in SODIUM CHLORIDE 0.9% 100 ML IV SCH (08:15)
[2020-11-25] MEDS: MYCOPHENOLATE MOFETIL 250 MG CAPSULE PO SCH ×2 (08:15→20:08)
[2020-11-25] MEDS: TACROLIMUS 0.5 MG CAPSULE PO SCH ×2 (08:15→20:09)
[2020-11-25] MEDS: amLODIPine 5 MG TABLET PO SCH (08:15)
[2020-11-25] MEDS: FAMOTIDINE 20 MG TABLET PO SCH ×2 (08:15→20:08)
[2020-11-25] MEDS: APIXABAN 5 MG TABLET PO SCH ×2 (08:15→20:08)
[2020-11-25] MEDS: ESCITALOPRAM 10 MG TABLET PO SCH (08:15)
[2020-11-25] MEDS: ASPIRIN EC 81 MG TABLET PO SCH (08:15)
[2020-11-25] MEDS: oxyCODONE IR 5 MG TABLET PO PRN (08:16)
[2020-11-25] MEDS: ZINC SULFATE 220 MG CAPSULE PO SCH (08:16)
[2020-11-25] MEDS: AZITHROMYCIN 250 MG TABLET PO SCH (08:16)
[2020-11-25] MEDS: ALPRAZolam 0.5 MG TABLET PO SCH ×3 (08:16→20:07)
[2020-11-25 09:05] LABS: Total Protein (Chem) 7.4 G/DL (6.4-8.3)
[2020-11-25 09:53] LABS: Albumin (SPE) 4.3 G/DL (3.2-5.3); Albumin (SPE) Rel % 57.6 %; Alpha 1 (SPE) 0.2 G/DL (0.1-0.4); Alpha 1 (SPE) Rel % 3.2 %; Alpha 2 (SPE) Rel % 13.1 %; Beta (SPE) 0.8 G/DL (0.5-1.1); Beta (SPE) Rel % 10.8 %; Gamma (SPE) 1.1 G/DL (0.7-1.7); Gamma (SPE) Rel % 15.3 %
[2020-11-25] MEDS: cefTRIAXone 2,000 MG in SODIUM CHLORIDE 0.9% 100 ML IV SCH (17:52)
[2020-11-25] MEDS: ALBUTEROL INHALER 18 GM INH SCH (20:06)
[2020-11-25] MEDS: ATORVASTATIN 10 MG TABLET PO SCH (20:08)
[2020-11-25] MEDS: QUEtiapine 25 MG TABLET PO SCH (20:08)
[2020-11-26] MEDS: ALBUTEROL INHALER 18 GM INH SCH ×4 (00:55→20:05)
[2020-11-26] MEDS: guaiFENesin/DM ER 600-30 MG TABLET PO PRN (01:45)
[2020-11-26] MEDS: SODIUM CHLORIDE 0.9% 1,000 ML IV SCH ×2 (02:53→22:53)
[2020-11-26] MEDS: LEVOTHYROXINE 100 MCG TABLET PO SCH (06:15)
[2020-11-26 06:32] LABS: Basophils # 0.1 10*3/uL (0.0-0.2); Basophils % 0.6 % (0.0-0.8); Hematocrit 39.7 VOL% (42.0-52.0); Hemoglobin 11.9 GM/DL (14.0-18.0); Immature Granulocytes % 2.3 %; Immature Granulocytes Absolute 0.19 #; Lymphocytes # 4.1 10*3/uL (1.4-4.0); Lymphocytes % 50.2 % (21.2-54.2); Mean Corpuscular Volume 113.4 FL (87-102); Mean Platelet Volume 12.3 FL (9.6-12.0); Monocytes % 5.3 % (1.7-12.7); Neutrophils % 41.6 % (38.7-73.9); Platelet Count 269 T/CUMM (130-400); Red Cell Distribution Width 14.7 % (9.3-17.3); White Blood Count 8.1 T/CUMM (4-12)
[2020-11-26 07:00] LABS: Band Neutrophils 1 % (0-10); Lymphocytes 53 % (20-55); Segmented Neutrophils 39 % (50-85); Total Cells Counted 100
[2020-11-26 07:01] LABS: Atypical Lymphocytes Few; Hypochromasia 1+; Microcytosis 1+; Platelet Estimate Adequate
[2020-11-26 07:02] LABS: Albumin 2.8 G/DL (3.4-5.0); Calcium 8.6 MG/DL (8.5-10.1); Osmolality,Calculated 283.8 MOS/KG (273-304); Potassium 4.2 MMOL/L (3.5-5.1); Total Protein 6.5 G/DL (6.4-8.2)
[2020-11-26] MEDS: INSULIN LISPRO 100 UNIT/ML SUBCUT SCH ×4 (07:43→20:03)
[2020-11-26] MEDS: ASPIRIN EC 81 MG TABLET PO SCH (08:19)
[2020-11-26] MEDS: MYCOPHENOLATE MOFETIL 250 MG CAPSULE PO SCH ×2 (08:24→20:04)
[2020-11-26] MEDS: ESCITALOPRAM 10 MG TABLET PO SCH (08:25)
[2020-11-26] MEDS: amLODIPine 5 MG TABLET PO SCH (08:25)
[2020-11-26] MEDS: APIXABAN 5 MG TABLET PO SCH ×2 (08:25→20:04)
[2020-11-26] MEDS: DEXAMETHASONE 4 MG TABLET PO SCH (08:25)
[2020-11-26] MEDS: FAMOTIDINE 20 MG TABLET PO SCH ×2 (08:25→20:04)
[2020-11-26] MEDS: DESITIN 4OZ/NYSTATIN 15 GRAM MIXTURE PASTE TOP SCH ×2 (08:26→20:05)
[2020-11-26] MEDS: TACROLIMUS 0.5 MG CAPSULE PO SCH ×2 (08:26→20:04)
[2020-11-26] MEDS: oxyCODONE IR 5 MG TABLET PO PRN (08:30)
[2020-11-26] MEDS: ZINC SULFATE 220 MG CAPSULE PO SCH (08:33)
[2020-11-26] MEDS: REMDESIVIR 100 MG in SODIUM CHLORIDE 0.9% 100 ML IV SCH (08:33)
[2020-11-26] MEDS: AZITHROMYCIN 250 MG TABLET PO SCH (08:33)
[2020-11-26] MEDS: ALPRAZolam 0.5 MG TABLET PO SCH ×3 (08:33→20:04)
[2020-11-26] MEDS: INSULIN GLARGINE 100 UNIT/ML SUBCUT SCH (09:13)
[2020-11-26] MEDS: fentaNYL 25 MCG/HR PATCH TRANSDERM SCH (09:28)
[2020-11-26] MEDS: cefTRIAXone 2,000 MG in SODIUM CHLORIDE 0.9% 100 ML IV SCH (18:32)
[2020-11-26] MEDS: QUEtiapine 25 MG TABLET PO SCH (20:04)
[2020-11-26] MEDS: ATORVASTATIN 10 MG TABLET PO SCH (20:04)
[2020-11-27] MEDS: ALBUTEROL INHALER 18 GM INH SCH ×4 (01:12→20:31)
[2020-11-27] MEDS: LEVOTHYROXINE 100 MCG TABLET PO SCH (05:53)
[2020-11-27 05:55] LABS: Basophils % 0.3 % (0.0-0.8); Hematocrit 39.2 VOL% (42.0-52.0); Immature Granulocytes % 1.5 %; Lymphocytes # 2.6 10*3/uL (1.4-4.0); Lymphocytes % 39.3 % (21.2-54.2); Mean Corpuscular HGB Conc 30.6 GM/DL (32-36); Mean Corpuscular Volume 111.7 FL (87-102); Mean Platelet Volume 12.3 FL (9.6-12.0); Monocytes % 6.6 % (1.7-12.7); Neutrophils % 52.3 % (38.7-73.9); Platelet Count 290 T/CUMM (130-400); Red Blood Count 3.51 MC/CUMM (3.8-5.5); Red Cell Distribution Width 14.5 % (9.3-17.3); White Blood Count 6.6 T/CUMM (4-12)
[2020-11-27 06:23] LABS: Calcium 8.4 MG/DL (8.5-10.1); Ferritin 731.5 ng/mL (26-388); Osmolality,Calculated 284.8 MOS/KG (273-304); Potassium 4.8 MMOL/L (3.5-5.1)
[2020-11-27] MEDS: ACETAMINOPHEN 325 MG TABLET PO PRN (09:36)
[2020-11-27] MEDS: MYCOPHENOLATE MOFETIL 250 MG CAPSULE PO SCH ×2 (09:38→20:31)
[2020-11-27] MEDS: APIXABAN 5 MG TABLET PO SCH ×2 (09:38→20:31)
[2020-11-27] MEDS: ASPIRIN EC 81 MG TABLET PO SCH (09:38)
[2020-11-27] MEDS: amLODIPine 5 MG TABLET PO SCH (09:38)
[2020-11-27] MEDS: DEXAMETHASONE 4 MG TABLET PO SCH (09:38)
[2020-11-27] MEDS: ZINC SULFATE 220 MG CAPSULE PO SCH (09:39)
[2020-11-27] MEDS: AZITHROMYCIN 250 MG TABLET PO SCH (09:39)
[2020-11-27] MEDS: ESCITALOPRAM 10 MG TABLET PO SCH (09:39)
[2020-11-27] MEDS: ALPRAZolam 0.5 MG TABLET PO SCH ×3 (09:40→20:30)
[2020-11-27] MEDS: INSULIN GLARGINE 100 UNIT/ML SUBCUT SCH (09:40)
[2020-11-27] MEDS: FAMOTIDINE 20 MG TABLET PO SCH ×2 (09:40→20:30)
[2020-11-27] MEDS: INSULIN LISPRO 100 UNIT/ML SUBCUT SCH ×4 (09:41→20:31)
[2020-11-27] MEDS: REMDESIVIR 100 MG in SODIUM CHLORIDE 0.9% 100 ML IV SCH (09:41)
[2020-11-27] MEDS: DESITIN 4OZ/NYSTATIN 15 GRAM MIXTURE PASTE TOP SCH ×2 (09:43→20:31)
[2020-11-27] MEDS: TACROLIMUS 0.5 MG CAPSULE PO SCH ×2 (10:09→20:30)
[2020-11-27] MEDS: oxyCODONE IR 5 MG TABLET PO PRN (14:06)
[2020-11-27] MEDS: cefTRIAXone 2,000 MG in SODIUM CHLORIDE 0.9% 100 ML IV SCH (17:20)
[2020-11-27] MEDS: SODIUM CHLORIDE 0.9% 1,000 ML IV SCH (18:53)
[2020-11-27] MEDS: ATORVASTATIN 10 MG TABLET PO SCH (20:30)
[2020-11-27] MEDS: QUEtiapine 25 MG TABLET PO SCH (20:31)
[2020-11-28] MEDS: ALBUTEROL INHALER 18 GM INH SCH ×4 (01:15→18:13)
[2020-11-28 05:10] LABS: Basophils % 0.3 % (0.0-0.8); Hematocrit 39.1 VOL% (42.0-52.0); Hemoglobin 12.1 GM/DL (14.0-18.0); Immature Granulocytes Absolute 0.39 #; Lymphocytes # 3.3 10*3/uL (1.4-4.0); Lymphocytes % 41.9 % (21.2-54.2); Mean Corpuscular HGB Conc 30.9 GM/DL (32-36); Mean Corpuscular Volume 111.1 FL (87-102); Mean Platelet Volume 12.3 FL (9.6-12.0); Monocytes % 10.7 % (1.7-12.7); Neutrophils % 42.1 % (38.7-73.9); Platelet Count 305 T/CUMM (130-400); Red Blood Count 3.52 MC/CUMM (3.8-5.5); Red Cell Distribution Width 14.2 % (9.3-17.3); White Blood Count 7.8 T/CUMM (4-12)
[2020-11-28 05:36] LABS: Lymphocytes 46 % (20-55); Segmented Neutrophils 45 % (50-85); Total Cells Counted 100
[2020-11-28 05:37] LABS: Atypical Lymphocytes Few; Hypochromasia Slight; Microcytosis Slight; Platelet Estimate Adequate
[2020-11-28 05:40] LABS: Alanine Aminotransferase 23 U/L (16-61); Albumin 2.8 G/DL (3.4-5.0); Alkaline Phosphatase 68 U/L (45-117); Aspartate Amino Transferase 19 U/L (0-37); Blood Urea Nitrogen 21 MG/DL (7-18); Calcium 8.4 MG/DL (8.5-10.1); Carbon Dioxide 27 MMOL/L (21-32); Estimated Glom Filtration Rate 136 ML/MIN; Ferritin 819.1 ng/mL (26-388); Glucose 266 MG/DL (74-106); Osmolality,Calculated 281.1 MOS/KG (273-304); Potassium 4.2 MMOL/L (3.5-5.1); Sodium 135 MMOL/L (136-145); Total Protein 6.3 G/DL (6.4-8.2)
[2020-11-28] MEDS: LEVOTHYROXINE 100 MCG TABLET PO SCH (06:25)
[2020-11-28] MEDS ORDERED: MAGNESIUM SULF RIDER 2 GM/50 ML PREMIX IV PRN (08:01)
[2020-11-28] MEDS ORDERED: MAGNESIUM SULF RIDER 4 GM/100 ML PREMIX IV PRN (08:01)
[2020-11-28] MEDS: INSULIN LISPRO 100 UNIT/ML SUBCUT SCH ×5 (10:24→21:40)
[2020-11-28] MEDS: INSULIN GLARGINE 100 UNIT/ML SUBCUT SCH (10:25)
[2020-11-28] MEDS: ACETAMINOPHEN 325 MG TABLET PO PRN (10:25)
[2020-11-28] MEDS: FAMOTIDINE 20 MG TABLET PO SCH ×2 (10:25→21:39)
[2020-11-28] MEDS: ZINC SULFATE 220 MG CAPSULE PO SCH (10:27)
[2020-11-28] MEDS: MYCOPHENOLATE MOFETIL 250 MG CAPSULE PO SCH ×2 (10:27→21:39)
[2020-11-28] MEDS: APIXABAN 5 MG TABLET PO SCH ×2 (10:27→21:39)
[2020-11-28] MEDS: DEXAMETHASONE 4 MG TABLET PO SCH (10:28)
[2020-11-28] MEDS: ESCITALOPRAM 10 MG TABLET PO SCH (10:28)
[2020-11-28] MEDS: TACROLIMUS 0.5 MG CAPSULE PO SCH ×2 (10:28→21:39)
[2020-11-28] MEDS: ASPIRIN EC 81 MG TABLET PO SCH (10:29)
[2020-11-28] MEDS: amLODIPine 5 MG TABLET PO SCH (10:29)
[2020-11-28] MEDS: ALPRAZolam 0.5 MG TABLET PO SCH ×3 (10:34→21:38)
[2020-11-28] MEDS: DESITIN 4OZ/NYSTATIN 15 GRAM MIXTURE PASTE TOP SCH ×2 (10:35→21:40)
[2020-11-28] MEDS: REMDESIVIR 100 MG in SODIUM CHLORIDE 0.9% 100 ML IV SCH (10:35)
[2020-11-28] MEDS: oxyCODONE IR 5 MG TABLET PO PRN ×2 (15:13→21:39)
[2020-11-28] MEDS: cefTRIAXone 2,000 MG in SODIUM CHLORIDE 0.9% 100 ML IV SCH (18:12)
[2020-11-28] MEDS: MELATONIN 3 MG TABLET PO PRN (21:39)
[2020-11-28] MEDS: QUEtiapine 25 MG TABLET PO SCH (21:39)
[2020-11-28] MEDS: ATORVASTATIN 10 MG TABLET PO SCH (21:39)
[2020-11-29] MEDS: ALBUTEROL INHALER 18 GM INH SCH ×2 (01:10→22:00)
[2020-11-29 04:20] LABS: Alanine Aminotransferase 32 U/L (16-61); Albumin 2.7 G/DL (3.4-5.0); Alkaline Phosphatase 64 U/L (45-117); Aspartate Amino Transferase 27 U/L (0-37); Blood Urea Nitrogen 23 MG/DL (7-18); Calcium 8.4 MG/DL (8.5-10.1); Carbon Dioxide 28 MMOL/L (21-32); Estimated Glom Filtration Rate 143 ML/MIN; Ferritin 778.1 ng/mL (26-388); Glucose 225 MG/DL (74-106); Osmolality,Calculated 278.2 MOS/KG (273-304); Potassium 4.7 MMOL/L (3.5-5.1); Sodium 134 MMOL/L (136-145); Total Protein 6.2 G/DL (6.4-8.2)
[2020-11-29] MEDS: guaiFENesin/DM ER 600-30 MG TABLET PO PRN ×2 (05:08→21:38)
[2020-11-29] MEDS: LEVOTHYROXINE 100 MCG TABLET PO SCH (06:00)
[2020-11-29] MEDS: FAMOTIDINE 20 MG TABLET PO SCH ×2 (08:10→21:38)
[2020-11-29] MEDS: MYCOPHENOLATE MOFETIL 250 MG CAPSULE PO SCH ×2 (08:10→21:38)
[2020-11-29] MEDS: TACROLIMUS 0.5 MG CAPSULE PO SCH ×2 (08:10→21:38)
[2020-11-29] MEDS: ALPRAZolam 0.5 MG TABLET PO SCH ×3 (08:10→21:38)
[2020-11-29] MEDS: ESCITALOPRAM 10 MG TABLET PO SCH (08:11)
[2020-11-29] MEDS: DEXAMETHASONE 4 MG TABLET PO SCH (08:11)
[2020-11-29] MEDS: ZINC SULFATE 220 MG CAPSULE PO SCH (08:11)
[2020-11-29] MEDS: amLODIPine 5 MG TABLET PO SCH (08:11)
[2020-11-29] MEDS: APIXABAN 5 MG TABLET PO SCH ×2 (08:11→21:38)
[2020-11-29] MEDS: ASPIRIN EC 81 MG TABLET PO SCH (08:11)
[2020-11-29] MEDS: oxyCODONE IR 5 MG TABLET PO PRN ×3 (08:12→22:35)
[2020-11-29] MEDS: INSULIN LISPRO 100 UNIT/ML SUBCUT SCH ×4 (08:12→21:51)
[2020-11-29] MEDS: INSULIN GLARGINE 100 UNIT/ML SUBCUT SCH (08:13)
[2020-11-29] MEDS: fentaNYL 25 MCG/HR PATCH TRANSDERM SCH (08:13)
[2020-11-29] MEDS: DESITIN 4OZ/NYSTATIN 15 GRAM MIXTURE PASTE TOP SCH ×2 (08:33→21:52)
[2020-11-29] MEDS: BARICITINIB 2 MG TABLET PO SCH (12:37)
[2020-11-29] MEDS: cefTRIAXone 2,000 MG in SODIUM CHLORIDE 0.9% 100 ML IV SCH (17:07)
[2020-11-29] MEDS: MELATONIN 3 MG TABLET PO PRN (21:38)
[2020-11-29] MEDS: ATORVASTATIN 10 MG TABLET PO SCH (21:39)
[2020-11-29] MEDS: QUEtiapine 25 MG TABLET PO SCH (21:39)
[2020-11-30] MEDS: ALBUTEROL INHALER 18 GM INH SCH ×2 (01:00→20:39)
[2020-11-30 04:41] LABS: Basophils % 0.2 % (0.0-0.8); Eosinophils % 0.1 % (0.00-10.9); Hematocrit 37.1 VOL% (42.0-52.0); Hemoglobin 11.6 GM/DL (14.0-18.0); Immature Granulocytes % 3.4 %; Immature Granulocytes Absolute 0.38 #; Lymphocytes # 4.9 10*3/uL (1.4-4.0); Lymphocytes % 44.4 % (21.2-54.2); Mean Corpuscular HGB Conc 31.3 GM/DL (32-36); Mean Corpuscular Volume 108.5 FL (87-102); Monocytes % 24.3 % (1.7-12.7); NRBC # 0.02 10*3/uL; Neutrophils % 27.6 % (38.7-73.9); Platelet Count 347 T/CUMM (130-400); Red Blood Count 3.42 MC/CUMM (3.8-5.5); Red Cell Distribution Width 14.1 % (9.3-17.3)
[2020-11-30 05:15] LABS: Albumin 2.7 G/DL (3.4-5.0); Bilirubin,Total 0.6 MG/DL (0.20-1.00); Calcium 9.1 MG/DL (8.5-10.1); Osmolality,Calculated 287.4 MOS/KG (273-304); Potassium 4.1 MMOL/L (3.5-5.1)
[2020-11-30 05:34] LABS: Atypical Lymphocytes Few; Band Neutrophils 4 % (0-10); Hypochromasia 1+; Lymphocytes 44 % (20-55); Macrocytosis 1+; Platelet Estimate Normal; Segmented Neutrophils 28 % (50-85); Target Cells Slight; Total Cells Counted 100
[2020-11-30] MEDS: LEVOTHYROXINE 100 MCG TABLET PO SCH (05:36)
[2020-11-30] MEDS: ZINC SULFATE 220 MG CAPSULE PO SCH (08:01)
[2020-11-30] MEDS: ASPIRIN EC 81 MG TABLET PO SCH (08:01)
[2020-11-30] MEDS: DEXAMETHASONE 4 MG TABLET PO SCH (08:01)
[2020-11-30] MEDS: oxyCODONE IR 5 MG TABLET PO PRN ×2 (08:01→16:41)
[2020-11-30] MEDS: TACROLIMUS 0.5 MG CAPSULE PO SCH ×2 (08:02→20:35)
[2020-11-30] MEDS: MYCOPHENOLATE MOFETIL 250 MG CAPSULE PO SCH ×2 (08:02→20:35)
[2020-11-30] MEDS: APIXABAN 5 MG TABLET PO SCH ×2 (08:03→20:34)
[2020-11-30] MEDS: ESCITALOPRAM 10 MG TABLET PO SCH (08:04)
[2020-11-30] MEDS: INSULIN LISPRO 100 UNIT/ML SUBCUT SCH ×4 (08:04→20:36)
[2020-11-30] MEDS: amLODIPine 5 MG TABLET PO SCH (08:05)
[2020-11-30] MEDS: INSULIN GLARGINE 100 UNIT/ML SUBCUT SCH (08:05)
[2020-11-30] MEDS: FAMOTIDINE 20 MG TABLET PO SCH ×2 (08:05→20:34)
[2020-11-30] MEDS: BARICITINIB 2 MG TABLET PO SCH (08:06)
[2020-11-30] MEDS: DESITIN 4OZ/NYSTATIN 15 GRAM MIXTURE PASTE TOP SCH ×2 (08:06→20:38)
[2020-11-30] MEDS: ALPRAZolam 0.5 MG TABLET PO SCH ×3 (08:40→20:34)
[2020-11-30] MEDS: ONDANSETRON 4 MG/2 ML VIAL IV PRN (09:00)
[2020-11-30] MEDS: cefTRIAXone 2,000 MG in SODIUM CHLORIDE 0.9% 100 ML IV SCH (17:01)
[2020-11-30] MEDS: MELATONIN 3 MG TABLET PO PRN (20:34)
[2020-11-30] MEDS: ATORVASTATIN 10 MG TABLET PO SCH (20:35)
[2020-11-30] MEDS: QUEtiapine 25 MG TABLET PO SCH (20:35)
[2020-12-01] MEDS: ALBUTEROL INHALER 18 GM INH SCH ×2 (01:08→20:44)
[2020-12-01 04:41] LABS: Basophils % 0.3 % (0.0-0.8); Eosinophils % 0.1 % (0.00-10.9); Hematocrit 38.4 VOL% (42.0-52.0); Hemoglobin 12.2 GM/DL (14.0-18.0); Immature Granulocytes % 4.5 %; Immature Granulocytes Absolute 0.53 #; Lymphocytes % 33.5 % (21.2-54.2); Mean Corpuscular HGB Conc 31.8 GM/DL (32-36); Mean Corpuscular Volume 106.7 FL (87-102); Mean Platelet Volume 13.6 FL (9.6-12.0); Monocytes % 28.6 % (1.7-12.7); Red Cell Distribution Width 14.1 % (9.3-17.3); White Blood Count 11.9 T/CUMM (4-12)
[2020-12-01 04:42] LABS: Platelet Count 204 T/CUMM (130-400)
[2020-12-01 05:07] LABS: Band Neutrophils 1 % (0-10); Hypochromasia 1+; Lymphocytes 42 % (20-55); Segmented Neutrophils 26 % (50-85); Total Cells Counted 100
[2020-12-01 05:08] LABS: Macrocytosis 1+; Platelet Estimate Normal
[2020-12-01 05:18] LABS: Alanine Aminotransferase 45 U/L (16-61); Albumin 2.7 G/DL (3.4-5.0); Alkaline Phosphatase 75 U/L (45-117); Aspartate Amino Transferase 37 U/L (0-37); Blood Urea Nitrogen 23 MG/DL (7-18); Calcium 8.9 MG/DL (8.5-10.1); Carbon Dioxide 26 MMOL/L (21-32); Estimated Glom Filtration Rate 136 ML/MIN; Ferritin 927.1 ng/mL (26-388); Glucose 210 MG/DL (74-106); Osmolality,Calculated 277.2 MOS/KG (273-304); Potassium 4.8 MMOL/L (3.5-5.1); Sodium 134 MMOL/L (136-145); Total Protein 6.3 G/DL (6.4-8.2)
[2020-12-01] MEDS: LEVOTHYROXINE 100 MCG TABLET PO SCH (06:08)
[2020-12-01] MEDS ORDERED: MAGNESIUM SULF RIDER 4 GM/100 ML PREMIX IV PRN (07:57)
[2020-12-01] MEDS ORDERED: MAGNESIUM SULF RIDER 2 GM/50 ML PREMIX IV PRN (07:57)
[2020-12-01] MEDS: ALPRAZolam 0.5 MG TABLET PO SCH ×3 (08:12→20:43)
[2020-12-01] MEDS: TACROLIMUS 0.5 MG CAPSULE PO SCH ×2 (08:12→20:47)
[2020-12-01] MEDS: ASPIRIN EC 81 MG TABLET PO SCH (08:13)
[2020-12-01] MEDS: INSULIN LISPRO 100 UNIT/ML SUBCUT SCH ×4 (08:13→20:43)
[2020-12-01] MEDS: oxyCODONE IR 5 MG TABLET PO PRN ×2 (08:13→16:30)
[2020-12-01] MEDS: ESCITALOPRAM 10 MG TABLET PO SCH (08:14)
[2020-12-01] MEDS: DEXAMETHASONE 4 MG TABLET PO SCH (08:14)
[2020-12-01] MEDS: INSULIN GLARGINE 100 UNIT/ML SUBCUT SCH (08:14)
[2020-12-01] MEDS: MYCOPHENOLATE MOFETIL 250 MG CAPSULE PO SCH ×2 (08:14→20:43)
[2020-12-01] MEDS: FAMOTIDINE 20 MG TABLET PO SCH ×2 (08:15→20:43)
[2020-12-01] MEDS: BARICITINIB 2 MG TABLET PO SCH (08:15)
[2020-12-01] MEDS: APIXABAN 5 MG TABLET PO SCH ×2 (08:15→20:43)
[2020-12-01] MEDS: ZINC SULFATE 220 MG CAPSULE PO SCH (08:15)
[2020-12-01] MEDS: amLODIPine 5 MG TABLET PO SCH (08:15)
[2020-12-01] MEDS: DESITIN 4OZ/NYSTATIN 15 GRAM MIXTURE PASTE TOP SCH ×2 (08:16→20:44)
[2020-12-01] MEDS: guaiFENesin/DM ER 600-30 MG TABLET PO PRN (09:05)
[2020-12-01] MEDS: ONDANSETRON 4 MG/2 ML VIAL IV PRN (09:41)
[2020-12-01] MEDS: QUEtiapine 25 MG TABLET PO SCH (20:43)
[2020-12-01] MEDS: ATORVASTATIN 10 MG TABLET PO SCH (20:43)
[2020-12-02] MEDS: ALBUTEROL INHALER 18 GM INH SCH ×2 (01:00→20:55)
[2020-12-02] MEDS: LEVOTHYROXINE 100 MCG TABLET PO SCH (06:15)
[2020-12-02 06:16] LABS: Basophils % 0.1 % (0.0-0.8); Eosinophils % 0.1 % (0.00-10.9); Hematocrit 37.2 VOL% (42.0-52.0); Hemoglobin 11.7 GM/DL (14.0-18.0); Immature Granulocytes % 6.3 %; Immature Granulocytes Absolute 0.73 #; Lymphocytes # 3.5 10*3/uL (1.4-4.0); Lymphocytes % 30.8 % (21.2-54.2); Mean Corpuscular HGB Conc 31.5 GM/DL (32-36); Mean Corpuscular Volume 107.8 FL (87-102); Mean Platelet Volume 12.5 FL (9.6-12.0); Monocytes % 27.5 % (1.7-12.7); Neutrophils % 35.2 % (38.7-73.9); Platelet Count 363 T/CUMM (130-400); Red Blood Count 3.45 MC/CUMM (3.8-5.5); Red Cell Distribution Width 14.4 % (9.3-17.3); White Blood Count 11.5 T/CUMM (4-12)
[2020-12-02 06:32] LABS: Calcium 8.8 MG/DL (8.5-10.1); Osmolality,Calculated 283.1 MOS/KG (273-304); Potassium 4.3 MMOL/L (3.5-5.1)
[2020-12-02 06:41] LABS: Lymphocytes 36 % (20-55); Platelet Estimate Normal; Segmented Neutrophils 39 % (50-85); Total Cells Counted 100
[2020-12-02] MEDS: INSULIN LISPRO 100 UNIT/ML SUBCUT SCH ×4 (08:30→20:40)
[2020-12-02] MEDS: INSULIN GLARGINE 100 UNIT/ML SUBCUT SCH (08:30)
[2020-12-02] MEDS: oxyCODONE IR 5 MG TABLET PO PRN ×2 (08:31→16:32)
[2020-12-02] MEDS: ALPRAZolam 0.5 MG TABLET PO SCH ×3 (08:31→20:40)
[2020-12-02] MEDS: APIXABAN 5 MG TABLET PO SCH ×2 (08:31→20:40)
[2020-12-02] MEDS: ZINC SULFATE 220 MG CAPSULE PO SCH (08:31)
[2020-12-02] MEDS: DEXAMETHASONE 4 MG TABLET PO SCH (08:31)
[2020-12-02] MEDS: TACROLIMUS 0.5 MG CAPSULE PO SCH ×2 (08:32→20:40)
[2020-12-02] MEDS: BARICITINIB 2 MG TABLET PO SCH (08:32)
[2020-12-02] MEDS: guaiFENesin/DM ER 600-30 MG TABLET PO PRN (08:33)
[2020-12-02] MEDS: MYCOPHENOLATE MOFETIL 250 MG CAPSULE PO SCH ×2 (08:33→20:40)
[2020-12-02] MEDS: amLODIPine 5 MG TABLET PO SCH (08:33)
[2020-12-02] MEDS: ASPIRIN EC 81 MG TABLET PO SCH (08:33)
[2020-12-02] MEDS: ESCITALOPRAM 10 MG TABLET PO SCH (08:34)
[2020-12-02] MEDS: FAMOTIDINE 20 MG TABLET PO SCH ×2 (08:35→20:41)
[2020-12-02] MEDS: fentaNYL 25 MCG/HR PATCH TRANSDERM SCH (08:35)
[2020-12-02] MEDS: DESITIN 4OZ/NYSTATIN 15 GRAM MIXTURE PASTE TOP SCH ×2 (08:35→20:55)
[2020-12-02] MEDS: ATORVASTATIN 10 MG TABLET PO SCH (20:41)
[2020-12-02] MEDS: QUEtiapine 25 MG TABLET PO SCH (20:41)
[2020-12-03] MEDS: ALBUTEROL INHALER 18 GM INH SCH ×2 (01:00→08:33)
[2020-12-03 05:24] LABS: Basophils % 0.2 % (0.0-0.8); Hematocrit 37.7 VOL% (42.0-52.0); Hemoglobin 12.1 GM/DL (14.0-18.0); Immature Granulocytes % 7.9 %; Immature Granulocytes Absolute 0.96 #; Lymphocytes # 3.3 10*3/uL (1.4-4.0); Lymphocytes % 26.7 % (21.2-54.2); Mean Corpuscular HGB Conc 32.1 GM/DL (32-36); Mean Corpuscular Volume 107.4 FL (87-102); Mean Platelet Volume 12.3 FL (9.6-12.0); Monocytes % 22.8 % (1.7-12.7); Neutrophils % 42.4 % (38.7-73.9); Platelet Count 369 T/CUMM (130-400); Red Blood Count 3.51 MC/CUMM (3.8-5.5); Red Cell Distribution Width 14.1 % (9.3-17.3); White Blood Count 12.2 T/CUMM (4-12)
[2020-12-03 05:43] LABS: Calcium 9.1 MG/DL (8.5-10.1); Potassium 4.5 MMOL/L (3.5-5.1)
[2020-12-03 05:47] LABS: Band Neutrophils 1 % (0-10); Lymphocytes 36 % (20-55); Segmented Neutrophils 35 % (50-85); Total Cells Counted 100
[2020-12-03 05:48] LABS: Atypical Lymphocytes Few; Hypochromasia 1+; Macrocytosis 1+; Platelet Estimate Increased
[2020-12-03] MEDS: LEVOTHYROXINE 100 MCG TABLET PO SCH (06:42)
[2020-12-03 07:52] VITALS: BP 154/85
[2020-12-03] MEDS: DESITIN 4OZ/NYSTATIN 15 GRAM MIXTURE PASTE TOP SCH (08:33)
[2020-12-03] MEDS: INSULIN GLARGINE 100 UNIT/ML SUBCUT SCH (08:34)
[2020-12-03] MEDS: INSULIN LISPRO 100 UNIT/ML SUBCUT SCH (08:34)
[2020-12-03] MEDS: MYCOPHENOLATE MOFETIL 250 MG CAPSULE PO SCH (08:35)
[2020-12-03] MEDS: ZINC SULFATE 220 MG CAPSULE PO SCH (08:37)
[2020-12-03] MEDS: ALPRAZolam 0.5 MG TABLET PO SCH (08:37)
[2020-12-03] MEDS: amLODIPine 5 MG TABLET PO SCH (08:38)
[2020-12-03] MEDS: ESCITALOPRAM 10 MG TABLET PO SCH (08:38)
[2020-12-03] MEDS: APIXABAN 5 MG TABLET PO SCH (08:39)
[2020-12-03] MEDS: DEXAMETHASONE 4 MG TABLET PO SCH (08:39)
[2020-12-03] MEDS: ACETAMINOPHEN 325 MG TABLET PO PRN (08:39)
[2020-12-03] MEDS: ASPIRIN EC 81 MG TABLET PO SCH (08:39)
[2020-12-03] MEDS: FAMOTIDINE 20 MG TABLET PO SCH (08:42)
[2020-12-03] MEDS: TACROLIMUS 0.5 MG CAPSULE PO SCH (08:42)
[2020-12-03] MEDS: BARICITINIB 2 MG TABLET PO SCH (08:45)
== END 2020-12-03 10:30 | DRG 177 ==
LOC: N.ED 13:24 → SUATTDRO 18:21 → N.EDINP 18:21 → N.2E 20:55
PROVIDERS: ADMIT Hospitalist; ATTEND Internal Medicine